=== PATIENT | female | born 1960 | race African-American/Black ===

== ENCOUNTER 2020-10-20 15:17 | Outpatient (CLI) | payer OTHER | END 2020-10-20 15:18 | disposition home or self-care (01) | LOC: CSHMAMMO 15:17 | PROVIDERS: ATTEND Internal Medicine | DX: Z12.31 Encounter for screening mammogram for malignant neoplasm of breast (principal); Z80.3 Family history of malignant neoplasm of breast | CPT/HCPCS: 77063; 77067 ==

== ENCOUNTER 2024-03-18 09:18 | Emergency (ER) | payer BC ==
[2024-03-18] MEDS ORDERED: Ondansetron PF 4 MG/2 ML Vial ONE (09:48)
[2024-03-18] MEDS ORDERED: Ketorolac Tromethamine 30 MG (1 mL) VIAL ONE (09:48)
[2024-03-18 10:31] LABS: #Basophils 0.03 10x3/uL (0.0-0.2); #Monocytes 0.85 10x3/uL (0.0-1.1); #Neutrophils 8.51 10x3/uL (1.5-8.4); %Basophils 0.2 % (0.0-2.0); %Eosinophils 6.9 % (0.0-6.0); %Lymphocytes 20.8 % (18.0-47.0); %Monocytes 6.5 % (0.0-10.0); %Neutrophils 65.1 % (40.0-75.0); Hematocrit 48.3 % (34.9-44.5); Hemoglobin 16.6 g/dL (12.0-15.5); Mean Corpuscular HGB CONC 34.4 g/dL (32.0-36.0); Mean Corpuscular Hemoglobin 31.4 pg (27.0-33.0); Mean Corpuscular Volume 91.3 fL (81.6-98.3); Mean Platelet Volume 11.6 fL (7.4-10.4); Platelet Count 329 10x3/uL (150-450); RBC Distribution Width 13.3 % (11.5-14.5); Red Blood Cell (RBC) Count 5.29 10x6/uL (3.90-5.03); White Blood Cell (WBC) Count 13.1 10x3/uL (3.5-10.5)
[2024-03-18 10:37] LABS: INR-International Normal Ratio 1.1; PTT 26.3 sec (22.0-33.0); Prothrombin Time 11.5 sec (9.5-12.1)
[2024-03-18 10:41] LABS: ALT (SGPT) 40 U/L (8-55); AST (SGOT) 16 U/L (5-34); Albumin 3.5 g/dL (3.4-4.8); Alkaline Phosphatase 110 U/L (40-110); Anion Gap 16 mmol/L (10-20); BUN (Urea Nitrogen) 32 mg/dL (9.8-20.1); Bilirubin, Total 0.4 mg/dL (0.2-1.2); Calc. Creatinine Clearance 0 mL/min (70-130); Calcium 9.9 mg/dL (7.8-10.44); Carbon Dioxide 23 mmol/L (23-31); Chloride 100 mmol/L (98-107); Estimated GFR 31; Globulin 3.5 g/dL (2.4-3.5); Glucose 106 mg/dL (80-115); Lipase 10 U/L (8-78); Magnesium 1.7 mg/dL (1.6-2.6); Potassium 3.4 mmol/L (3.5-5.1); Sodium 136 mmol/L (136-145)
[2024-03-18 10:52] LABS: Troponin I Less than 0.010 ng/mL (< 0.028)
[2024-03-18 14:25] LABS: Bilirubin 6 (Negative); Blood, Urine Negative (Negative); Clarity Slightly Cloudy (Clear); Glucose, Urine (Dipstick) Normal (Negative); Ketone, Urine 5 mg/dL (Negative); Leukocyte 25 (Negative); Nitrite Negative (Negative); Protein, Urine (Dipstick) 30 mg/dl (Neg-Trace); Specific Gravity, Urine 1.025 (1.005-1.030)
[2024-03-18 14:55] LABS: CAUTI Indications for Culture Pelvic or flank pain; RBC/HPF 0-3 HPF (0-3)
[2024-03-18 14:56] LABS: Bacteria/HPF Rare-Few HPF (None Seen)
[2024-03-18 14:57] LABS: Urine Culture Reflex No No
== END 2024-03-18 14:55 | disposition home or self-care (01) ==
LOC: CSHERS 09:18
DX: E86.0 Dehydration (principal); N17.9 Acute kidney failure, unspecified; I10 Essential (primary) hypertension
CPT/HCPCS: 80053; 81001; 83605; 83690; 83735; 83880; 84484; 85025; 85610; 85730; 93005; 96374; 96375; J1885; J2405